=== PATIENT | male | born 1965 | race American Indian/Alaskan Native ===

== ENCOUNTER 2019-12-23 05:39 | Emergency (ER) | payer OTHER ==
[2019-12-23] MEDS ORDERED: BUPIVACAINE/PF (0.25%) 2.5 MG/ML 30 ML VIAL INFILTRATI ONE (06:52)
[2019-12-23] MEDS ORDERED: LIDOCAINE (1%) 10 MG/1 ML VIAL 20 ML MDV INFILTRATI ONE (06:52)
--- NOTE | 2019-12-23 07:00 | Emergency Department Report ---
HPI - General Chief Complaint: Urogenital-Male Time Seen by Provider: 12/23/19 06:48 - HPI HPI: Room 24 The patient is a 54-year-old male present with a chief complaint of priapism. Patient states he has a history of erectile dysfunction and injected himself with a medication prescribed by his urologist 36 hours ago. Patient states he has had a constant erection for 36 hours. Patient states he has not attempted to contact his urologist yet ED Past Medical Hx - Past Medical History Previous Medical History?: Yes Hx Hypertension: Yes (X 8 YRS) Hx of Cancer: Yes (Prostate) - Surgical History Past Surgical History?: Yes Additional Surgical History: Prostatectomy - Family History Family history: no significant - Social History Smoking Status: Never Smoker Substance Use Type: None - Medications Home Medications: Home Medications Medication Instructions Recorded Confirmed Last Taken Type Amlodipine Besylate/Benazepril 1 cap PO DAILY 04/06/17 04/17/17 04/17/17 05:00 History [Amlodipine-Benazepril 5-20 mg] AtorvaSTATin [Lipitor] 40 mg PO QHS 04/06/17 04/17/17 04/16/17 13:00 History Valsartan/Hydrochlorothiazide 1 tab PO DAILY 04/06/17 04/17/17 04/17/17 05:00 History [Valsartan-Hctz 160-12.5 mg Tab] ED Review of Systems ROS: Stated complaint: ERECTION X 36HRS Other details as noted in HPI Genitourinary: other (Priapism) Physical Exam - Physical Exam Vital Signs: Vital Signs 12/23/19 12/23/19 05:43 06:18 Temperature 97.7 F 97.9 F Pulse Rate 97 H 93 H Respiratory 18 18 Rate Blood Pressure 127/82 Blood Pressure 136/83 [Right] O2 Sat by Pulse 99 99 Oximetry Physical Exam: GENERAL: The patient is well-developed well-nourished male lying on stretcher not appearing to be in acute distress. [] HEENT: Normocephalic. Atraumatic. Extraocular motions are intact. Patient has moist mucous membranes. NECK: Supple. Trachea midline CHEST/LUNGS: There is no respiratory distress noted. HEART/CARDIOVASCULAR: Regular. There is no tachycardia. There is no gallop rub or murmur. SKIN: There is no rash. There is no edema. There is no diaphoresis. NEURO: The patient is awake, alert, and oriented. The patient is cooperative. The patient has normal speech MUSCULOSKELETAL: There is no evidence of acute injury. ED Course Vital Signs 12/23/19 12/23/19 05:43 06:18 Temperature 97.7 F 97.9 F Pulse Rate 97 H 93 H Respiratory 18 18 Rate Blood Pressure 127/82 Blood Pressure 136/83 [Right] O2 Sat by Pulse 99 99 Oximetry - Reevaluation(s) Reevaluation #1: 12/23/19 08:51 Priapism resolved - Consultations Consultation #1: 12/23/19 08:24 Urology paged 12/23/19 08:[address] Parker. States he is starting a surgical procedure that will last approximately 3 hours. Recommends attempting another site of aspiration and ice pack. Will eval after OR - Penile Procedure Consent Obtained: verbal consent Time Out Performed: Yes Indication: priapism management Procedural Sedation: No Sedation/Analgesia: none Local Anesthesia Used: Bupivicaine 0.25% Amount of Anesthesia Used (mls): 6 (Bupivacaine 0.25% mixed with lidocaine 1% plain and one-to-one ratio) Priapism Management: aspiration, phenylephrine injection (800 mcg total) Complications: none Additional Comments: Aspirated blood 232 mL's, ED Medical Decision Making - Differential Diagnosis Priapism Critical care attestation.: If time is entered above; I have spent that time in minutes in the direct care of this critically ill patient, excluding procedure time. ED Disposition Clinical Impression: Priapism Disposition: DC-01 TO HOME OR SELFCARE Is pt being admited?: No Does the pt Need Aspirin: No Condition: Stable Instructions: Priapism (ED) Additional Instructions: Return to the emergency department should you develop worsening symptoms, inability to tolerate food or liquids, high fever or any other concerns Referrals: PRIMARY CARE, [Primary Care Provider] - 3-5 Days MARIO PARKER MD [Staff Physician] - 3-5 Days Time of Disposition: 08:51
[2019-12-23] MEDS ORDERED: PHENYLEPHRINE 1 MG, SODIUM CHLORIDE P/F VIAL 10 ML 9.9 ML IJ**NOT IV ONE (07:14)
[2019-12-23 09:20] VITALS: BP 131/74
== END 2019-12-23 09:30 | disposition home or self-care (01) ==
LOC: ED 05:39
DX: N48.30 Priapism, unspecified (principal); I10 Essential (primary) hypertension; Z85.46 Personal history of malignant neoplasm of prostate
CPT/HCPCS: 54220; 99283; J2370